=== PATIENT | female | born 1950 | race Caucasian/White ===

== ENCOUNTER → 2017-08-30 | Outpatient (CLI) | payer MEDICARE, OTHER ==
[~2017-08-30] MED LIST: ACYC400T4 PO
--- NOTE | 2017-08-30 16:04 | RAD ---
DATE: 08/30/2017 EXAM: MAMMO VANITA SCREENING BILATERAL HISTORY: Routine screening. COMPARISON: 2:15 01/08 and 02/15/2008. This study was interpreted with the benefit of Computerized Aided Detection (CAD). FINDINGS: The parenchymal pattern is stable. No mass or malignant appearing microcalcifications are seen. The axillae are unremarkable. Breast Density: SCATTERED The breast parenchyma shows scattered fibroglandular densities. Breast parenchyma level B. IMPRESSION: No mammographic features suspicious for malignancy are identified. BI-RADS CATEGORY: 1 NEGATIVE RECOMMENDED FOLLOW-UP: 12M 12 MONTH FOLLOW-UP PQRS compliance statement: Patient information was entered into a reminder system with a target due date 08/30/2018 for the next mammogram. Mammography is a sensitive method for finding small breast cancers, but it does not detect them all and is not a substitute for careful clinical examination. A negative mammogram does not negate a clinically suspicious finding and should not result in delay in biopsying a clinically suspicious abnormality. "Our facility is accredited by the [employer] Mammography [employer]."
== END | disposition home or self-care (01) ==
LOC: MAMMO 13:57
PROVIDERS: ATTEND Nurse Practitioner Family
DX: Z12.31 Encounter for screening mammogram for malignant neoplasm of breast (principal)
CPT/HCPCS: 77063; G0202; 77067

== ENCOUNTER → 2017-10-25 | Outpatient (CLI) | payer MEDICARE, OTHER ==
--- NOTE | 2017-10-25 13:07 | RAD ---
EXAM: Dual energy x-ray absorptiometry (DEXA). HISTORY: Post menopausal screening. TECHNIQUE: Dual energy x-ray absorptiometry of the lumbar spine and right hip was performed. Calculation of bone mineral density based on standard deviations above or below the expected young adult normal value (T-score) was completed. FINDINGS: The average bone mineral density associated with L1-L4 is 1.148 g/cm^2, corresponding with a T-score of -0.4. The lowest measured T score is -1.7 at L2. The average total bone mineral density associated with the right hip is 0.872 g/cm^2, corresponding with a T-score of -1.1. No comparison examinations are available. IMPRESSION: 1. Osteopenia. Fracture risk is increased. Note: Definitions established by the World Health Organization: 1. Normal: T-score is -1.0 or above the expected mean for a young adult. 2. Osteopenia: T-score is between -1.0 and -2.5. 3. Osteoporosis: T-score is -2.5 or below.
== END | disposition home or self-care (01) ==
LOC: DXRAD 12:27
PROVIDERS: ATTEND Nurse Practitioner Family
DX: M85.88 Other specified disorders of bone density and structure, other site (principal); M81.0 Age-related osteoporosis without current pathological fracture; Z78.0 Asymptomatic menopausal state
CPT/HCPCS: 77080

== ENCOUNTER → 2019-04-10 | Outpatient (CLI) | payer MEDICARE, OTHER ==
--- NOTE | 2019-04-11 11:32 | RAD ---
DATE: April 10, 2019 EXAM: MAMMO VANITA SCREENING BILATERAL HISTORY: Screening study. COMPARISON: 2017 This study was interpreted with the benefit of Computerized Aided Detection (CAD). 2-D digital mammographic views of both breasts were performed in the CC and MLO projections. 3-D digital tomosynthesis images of both breasts were performed in the CC and MLO projections and reviewed on a computer workstation. FINDINGS: Breast Density: SCATTERED The breast parenchyma shows scattered fibroglandular densities. Breast parenchyma level B.. There are no dominant suspicious masses, suspicious microcalcifications or evidence of architectural distortion. IMPRESSION: No mammographic indicators for malignancy. BI-RADS CATEGORY: 1 NEGATIVE RECOMMENDED FOLLOW-UP: 12M 12 MONTH FOLLOW-UP PQRS compliance statement: Patient information was entered into a reminder system with a target due date April 11, 2020 for the next mammogram. Mammography is a sensitive method for finding small breast cancers, but it does not detect them all and is not a substitute for careful clinical examination. A negative mammogram does not negate a clinically suspicious finding and should not result in delay in biopsying a clinically suspicious abnormality. "Our facility is accredited by the [employer] Mammography [employer]." The patient's breast density may affect the ability of mammography to detect breast cancer. There are 4 categories of breast density, A, B, C and D. Breast density A means that most of the breast tissue is replaced with adipose tissue and therefore is not dense. Breast density B means that the breast tissue is mildly dense and scattered. Breast density C means that the breast tissue is heterogeneously dense. Breast density D means that the breast tissue is very dense. Breast densities especially C and D may decrease the sensitivity of mammography to detect breast cancer. Therefore, the patient may benefit from 3-D breast mammography (3D breast tomography) as a part of their screening mammogram. Insurance may or may not pay for this additional imaging. The patient's breast density based on today's mammogram is category B.
== END | disposition home or self-care (01) ==
LOC: MAMMO 14:06
PROVIDERS: ATTEND Physician Assistant Medical
DX: Z12.31 Encounter for screening mammogram for malignant neoplasm of breast (principal)
CPT/HCPCS: 77063; 77067

== ENCOUNTER → 2020-06-06 | Outpatient (CLI) | payer MEDICARE, OTHER ==
--- NOTE | 2020-06-06 17:06 | RAD ---
BILATERAL SCREENING MAMMOGRAM, 3-D History: Routine screening. Comparison: 04/10/2019, 06/30/2017, 10/27/2010. Technique: MLO and CC digital tomosynthesis (3D) images obtained. Radiologist reviewed these images on dedicated workstation. Findings: Breast Tissue Density C : The breasts are heterogeneously dense, which may obscure small masses. There are no dominant masses, suspicious microcalcifications, or architectural distortion. IMPRESSION: No mammographic evidence of malignancy. Recommend routine screening. BI-RADS category 1: Negative. The images were reviewed with computer-aided detection. Patient information is entered into reminder system with a target due date for the next screening mammogram. Mammography is the most sensitive method for finding small breast cancers, but it does not detect them all and is not a substitute for careful clinical examination. A negative mammogram does not negate a clinically suspicious finding and should not result in delay in biopsying a clinically suspicious abnormality. "Our facility is accredited by the [employer] Mammography [employer]." Electronically signed by: Jabari Dean MD (06/06/2020 5:04 PM) [facility]
== END | disposition home or self-care (01) ==
LOC: MAMMO 13:37
PROVIDERS: ATTEND Physician Assistant Medical
DX: Z12.31 Encounter for screening mammogram for malignant neoplasm of breast (principal)
CPT/HCPCS: 77063; 77067

== ENCOUNTER → 2020-06-27 | Outpatient (CLI) | payer MEDICARE, OTHER ==
--- NOTE | 2020-06-27 12:22 | RAD ---
PA and lateral chest x-ray compared to similar exam dated 02/09/2014 for preop, shoulder surgery. FINDINGS: The lungs are clear. The cardiac mediastinum is grossly unremarkable. No significant soft tissue or osseous abnormalities are seen. IMPRESSION: 1. No acute cardiopulmonary abnormality. Electronically signed by: Herman Lilly MD (06/27/2020 12:19 PM) [id number]
== END ==
LOC: DXRAD 11:53
PROVIDERS: ATTEND Physician Assistant Medical
DX: Z01.818 Encounter for other preprocedural examination (principal)
CPT/HCPCS: 71046

== ENCOUNTER → 2021-07-20 | Outpatient (CLI) | payer MEDICARE, OTHER ==
--- NOTE | 2021-07-20 15:22 | RAD ---
Bilateral digital screening 2-D and 3-D (tomosynthesis) mammogram: Reason for examination: Routine screening. Comparison is made to previous mammograms from the 06/06/2020 and 04/10/2019. Bilateral mammograms in CC and oblique projections were obtained with 2-D imaging and 3-D tomosynthes is imaging and reviewed on the workstation. Interpretation was made with the benefit of CAD. Findings: Breast density: Category C. The breasts are heterogeneously dense, which may obscure small masses. There are no suspicious masses, malignant appearing calcifications or architectural distortion. There are rounded calcifications retroareolar region which it appeared of increased since previous mammogr ams. Impression: Calcifications in the left retroareolar region further evaluation with a diagnostic left mammogram is recommended. ASSESSMENT: BI-RADS 0. Incomplete. Recommendations: Diagnostic left mammogram. The patient will be contacted with results and scheduled for additional imaging. This patient's infor mation has been entered into a reminder system for the patient to be notified with the results of her examination and a target date for the next mammogram. Your patient's mammogram demonstrates that she has dense breast tissue (breast density category C or D), which could hide abnormalities, and if she has other risk factors for breast cancer that have bee n identified, she might benefit from supplemental screening tests that may be suggested by you as her ordering physician. Dense breast tissue, in and of itself, is a relatively common condition. Therefo re, this information is not provided to cause undue concern, but rather to raise your awareness and t o promote discussion with your patient regarding the presence of other risk factors, in addition to d ense breast tissue. Electronically signed by: Taya Baldwin MD (07/20/2021 3:19 PM) [id number]
== END ==
LOC: MAMMO 14:32
PROVIDERS: ATTEND Physician Assistant Medical
DX: Z12.31 Encounter for screening mammogram for malignant neoplasm of breast (principal)
CPT/HCPCS: 77063; 77067

== ENCOUNTER → 2021-07-31 | Outpatient (CLI) | payer MEDICARE, OTHER ==
--- NOTE | 2021-07-31 15:19 | RAD ---
EXAM: Left breast diagnostic mammogram. HISTORY: 70-year-old female presents for evaluation of left breast microcalcifications demonstrated o n a screening mammogram dated 07/20/2021. TECHNIQUE: Full-field digital and spot magnification views of the left breast are obtained. COMPARISON: 07/20/2021, 06/06/2020, and 04/10/2019 BREAST PARENCHYMAL DENSITY: Level C - Heterogeneously dense. FINDINGS: There are loosely clustered microcalcifications within the 6:00 anterior right breast. The largest of these calcifications are coarse and heterogeneous. There is no associated mass or architec tural distortion. IMPRESSION: 1. Indeterminant loosely clustered microcalcifications within the 6:00 anterior right breast. Stereot actic guided biopsy is recommended for definitive diagnosis. 2. BI-RADS Category 4: Suspicious abnormality. Stereotactic guided biopsy is recommended. These findings and recommendations were discussed with the patient and communicated to [place], the nurse for the referring physician internal medicine physician assistant, at 1550 hours on 07/31/2021. If your mammogram demonstrates that you have dense breast tissue, which could hide abnormalities, and if you have other risk factors for breast cancer that have been identified, you might benefit from s upplemental screening tests that may be suggested by your ordering physician. Dense breast tissue, i n and of itself, is a relatively common condition. This information is not provided to cause undue c oncern, but rather to raise your awareness and to promote discussion with your physician regarding th e presence of other risk factors, in addition to dense breast tissue. A report of your mammography re sults will be sent to you and your physician. You should contact your physician if you have any ques tions or concerns regarding this report. Mammography is a sensitive method for finding small breast cancers, but it does not detect them all a nd is not a substitute for careful clinical examination. A negative mammogram does not negate a clin ically suspicious finding and should not result in delay in biopsying a clinically suspicious abnorma lity. PQRS compliance statement - Patient information was entered into a reminder system with a target due date for the next mammogram. "Our facility is accredited by the [employer] Mammography Program." Electronically signed by: Olga Lidia Bowman MD (07/31/2021 3:17 PM) [id number]
== END ==
LOC: MAMMO 14:32
PROVIDERS: ATTEND Physician Assistant Medical
DX: R92.0 Mammographic microcalcification found on diagnostic imaging of breast (principal); R92.2 Inconclusive mammogram
CPT/HCPCS: 77065

== ENCOUNTER 2021-12-24 02:03 | Emergency (ER) | payer MEDICARE, OTHER ==
[~2021-12-24] VITALS: Ht 157.5 cm; Wt 56.3 kg
--- NOTE | 2021-12-24 02:08 | PHYS DOC ---
Past History Past Medical History: Diabetes, Hypertension Past Surgical History: Hysterectomy Past Surgical History Breast biopsy, right shoulder replacement General Adult HPI: HPI: '''..I ve been fighting this cold symptoms the past 2 weeks.. I went to bed abou t 9.. but I got up about a hour ago.. to go to bathroom.. and I just did not feel right... maybe a little weak in my Rt. arm ..and leg.. I felt like my speech was may be off... I think I am back to normal now..." Patient is a 71 year old female who presents with above hx and complaints of right arm with right,leg weakness. Patient went to bed approximately 2100 hrs. an approximately 1 AM. Got up to go the bathroom. Was able to ambulate to the bathroom and back. Patient complained to her that she is feeling" off" and may be a little weak particularly on right side. Eventually decided come to the emergency room for evaluation. Patient has past medical history of diabetes and currently on Metformin for the past year.. Some history of slightly elevated blood pressures. Has had previous lumpectomy which was benign. Has had surgery history of hysterectomy and right shoulder replacement.. Patient has been taking Mucinex for her cold symptoms past 2 weeks. Patient normally follows with [facility] for health maintenance care. Patient does not check her glucose levels. Patient has not had previous episodes of TIAs or CVAs. Patient has completed COVID vaccination and flu vaccination. No recent travel. No history of trauma. No specific ill contacts. Pt. initial glucose level is 123. GSC 15. NIHSS -0 to 1? articulation. at bedside states she is currently back to her baseline. No current deficits appreciated by him. Review of Systems: Review of Systems: Constitutional: Denies fever or chills Eyes: Denies change in visual acuity HENT: Denies nasal congestion or sore throat Respiratory: Denies cough or shortness of breath Cardiovascular: Denies chest pain or edema GI: Denies abdominal pain, nausea, vomiting, bloody stools or diarrhea : Denies dysuria Musculoskeletal: Denies back pain or joint pain Integument: Denies rash Neurologic: Complains of transient weakness right side arm and leg-symptoms have resolved by time arrival to the emergency department Endocrine: Denies polyuria or polydipsia Lymphatic: Denies swollen glands Psychiatric: Denies depression or anxiety Family History: Family History: Mother and father both had diabetes in their 70s. Current Medications: Current Meds: See nursing for home meds Allergies: Allergies: Allergies Coded Allergies Type Severity Reaction Last Updated Verified No Known Drug Allergies 02/13/14 No Physical Exam: PE: Constitutional: Well developed, well nourished, no acute distress, non-toxic appearance. [] HENT: Normocephalic, atraumatic, bilateral external ears normal, oropharynx moist, no oral exudates, nose normal. [] Eyes: PERRLA, EOMI, conjunctiva normal, no discharge. No field deficits Neck: Normal range of motion, no tenderness, supple, no stridor. No bruits Cardiovascular:Heart rate regular rhythm, no murmur [] Lungs & Thorax: Bilateral breath sounds equal apex with scattered wheezes and basilar crackles. Some rhonchi bilaterally on auscultation but cleared with coughing. Abdomen: Bowel sounds normal, soft, no tenderness, no masses, no pulsatile masses. Old surgery scars. Skin: Warm, dry, no erythema, no rash. [] Back: No tenderness, no CVA tenderness. [] Extremities: No tenderness, no cyanosis, no clubbing, ROM intact, no edema. No cording. Right shoulder scar Neurologic: Alert and oriented X 3, moves all extremities on request, does have distal sensory function, no focal deficits noted. [] DTRs +2 patella and brachial.. [place] Coma Score 15 NIH=0/1 Psychologic: Affect anxious, judgement normal, mood normal. [] EKG: EKG: My interpretation EKG shows a sinus rhythm at 76 bpm no findings acute STEMI with contralateral changes. Normal EKG time of EKG is 213 hours [] Radiology/Procedures: Radiology/Procedures: [address] [address] IMAGING REPORT Signed PATIENT: ERICKSON ORTA ACCOUNT: [id number] : 1950 LOCATION: ER AGE: 71 SEX: F EXAM STATUS: PRE ER ORD. PHYSICIAN: CRISTO GRESHAM MD REASON: dyspnea PROCEDURE: PORTABLE CHEST 1V EXAM: AP View of the chest DATE: 12/24/2021 2:16 AM INDICATION: Reason: dyspnea. Focal neurologic change. COMPARISON: 06/27/2020 FINDINGS: The heart is not enlarged. Mediastinal and hilar contours are normal. No focal parenchymal airspace opacity. No pleural effusion or pneumothorax. Right shoulder arthroplasty partially profiled. Left shoulder joint degenerative changes. IMPRESSION: 1. No radiographic evidence for acute cardiopulmonary process. Electronically signed by: Babar Newell MD (12/24/2021 2:35 AM) RAY DICTATED AND SIGNED BY: BABAR NEWELL MD DATE: 12/24/21234 CC: CRISTO GRESHAM MD; VIVI JIMENES ~ []REASON: Weakness - legs, DIFFICULTY SPEAKING PROCEDURE: CT CODE STROKE HEAD WO EXAM: CT Head without IV contrast CLINICAL HISTORY: Reason: Weakness - legs COMPARISON: None. TECHNIQUE: Routine CT of the head without contrast. PQRS compliance statement - One or more of the following individualized dose reduction techniques were utilized for this study: 1. Automated exposure control 2. Adjustment of the mA and/or kV according to patient size 3. Use of iterative reconstruction technique FINDINGS: There is no evidence of hemorrhage, mass or extra-axial fluid collection. Manzo-white differentiation is maintained with no evidence of edema. There is no mass effect or shift of the intracranial structures. The ventricles, basilar cisterns and cortical sulci are normal in size and configuration for the patients stated age. The cerebellum and brainstem are unremarkable. The calvarium demonstrates no evidence of fracture or focal lesion. There is normal aeration of the visualized paranasal sinuses and mastoid air cells. The visualized portions of the orbits are normal. IMPRESSION: No evidence for acute intracranial process. Findings discussed with CRISTO GRESHAM MD at 12/24/2021 2:33 AM. FOR INTERNAL CODING PURPOSES RESULT CODE: (C) Electronically signed by: Babar Newell MD (12/24/2021 2:36 AM) RAY DICTATED AND SIGNED BY: BABAR NEWELL MD DATE: 12/24/21230 CC: CRISTO GRESHAM MD; VIVI JIMENES Heart Score: C/O Chest Pain: N/A Risk Factors: Risk Factors: DM, Current or recent (<one month) smoker, HTN, HLP, family history of CAD, obesity. Risk Scores: Score 0 - 3: 2.5% MACE over next 6 weeks - Discharge Home Score 4 - 6: 20.3% MACE over next 6 weeks - Admit for Clinical Observation Score 7 - 10: 72.7% MACE over next 6 weeks - Early Invasive Strategies Course & Med Decision Making: Course & Med Decision Making Pertinent Labs and Imaging studies reviewed. (See chart for details) CT angio deferred this time because of Metformin use. Discussed presentation, testing and treatment plan with -we will start on a daily aspirin. Patient elects to follow-up in his office. [phone]. Patient to call his office in the morning for follow-up. Patient return if any concerns. Impression; 1. Neuro symptoms 2. Possible TIA 3. Viral syndrome-respiratory 4. Negative rapid influenza A and influenza B, and rapid COVID [] Dragon Disclaimer: Dragon Disclaimer: This electronic medical record was generated, in whole or in part, using a voice recognition dictation system. Departure Departure: Referrals: VIVI JIMENES (PCP) Dragon Disclaimer This chart was dictated in whole or in part using Voice Recognition software in a busy, high-work load, and often noisy Emergency Department environment. It may contain unintended and wholly unrecognized errors or omissions. Dragon Disclaimer This chart was dictated in whole or in part using Voice Recognition software in a busy, high-work load, and often noisy Emergency Department environment. It may contain unintended and wholly unrecognized errors or omissions. Dragon Disclaimer This chart was dictated in whole or in part using Voice Recognition software in a busy, high-work load, and often noisy Emergency Department environment. It may contain unintended and wholly unrecognized errors or omissions. CRISTO GRESHAM MD Dec 24, 2021 02:08
[2021-12-24] MEDS ORDERED: IV RINGERS SOLUTION,LACTATED 1,000 ML IV SCH (02:15)
--- NOTE | 2021-12-24 02:38 | RAD ---
EXAM: CT Head without IV contrast CLINICAL HISTORY: Reason: Weakness - legs COMPARISON: None. TECHNIQUE: Routine CT of the head without contrast. PQRS compliance statement - One or more of the following individualized dose reduction techniques wer e utilized for this study: 1. Automated exposure control 2. Adjustment of the mA and/or kV according to patient size 3. Use of iterative reconstruction technique FINDINGS: There is no evidence of hemorrhage, mass or extra-axial fluid collection. Manzo-white differentiation is maintained with no evidence of edema. There is no mass effect or shift of the intracranial structures. The ventricles, basilar cisterns and cortical sulci are normal in size and configuration for the josh ents stated age. The cerebellum and brainstem are unremarkable. The calvarium demonstrates no evidence of fracture or focal lesion. There is normal aeration of the visualized paranasal sinuses and mastoid air cells. The visualized portions of the orbits are normal. IMPRESSION: No evidence for acute intracranial process. Findings discussed with CRISTO GRESHAM MD at 12/24/2021 2:33 AM. FOR INTERNAL CODING PURPOSES RESULT CODE: (C) Electronically signed by: Babar Godoy MD (12/24/2021 2:36 AM) [facility]
--- NOTE | 2021-12-24 02:38 | RAD ---
EXAM: AP View of the chest DATE: 12/24/2021 2:16 AM INDICATION: Reason: dyspnea. Focal neurologic change. COMPARISON: 06/27/2020 FINDINGS: The heart is not enlarged. Mediastinal and hilar contours are normal. No focal parenchymal airspace opacity. No pleural effusion or pneumothorax. Right shoulder arthroplasty partially profiled. Left shoulder joint degenerative changes. IMPRESSION: 1. No radiographic evidence for acute cardiopulmonary process. Electronically signed by: Babar Godoy MD (12/24/2021 2:35 AM) RAY
[2021-12-24 02:58] LABS: BASO # 0.1 x10^3/uL (0.0-0.2); BASO % 1 % (0-3); EOS # 0.3 x10^3/uL (0.0-0.7); EOS % 4 % (0-3); HEMATOCRIT 42.5 % (36.0-47.0); HEMOGLOBIN 14.2 g/dL (12.0-15.5); LYMPH # 3.8 x10^3/uL (1.0-4.8); LYMPH % 52 % (24-48); MEAN CORPUSCULAR HEMOGLOBIN 30 pg (25-35); MEAN CORPUSCULAR HGB CONC 34 g/dL (31-37); MEAN CORPUSCULAR VOLUME 90 fL (79-100); MONO # 0.7 x10^3/uL (0.0-1.1); MONO % 9 % (0-9); NEUT # 2.5 x10^3uL (1.8-7.7); NEUT % 34 % (31-73); PLATELET COUNT 231 x10^3/uL (140-400); RED BLOOD COUNT 4.75 x10^6/uL (3.50-5.40); RED CELL DISTRIBUTION WIDTH 12.8 % (11.5-14.5); WHITE BLOOD COUNT 7.3 x10^3/uL (4.0-11.0)
[2021-12-24] MEDS ORDERED: ASPIRIN CHEWABLE 81 MG TABLET. PO ONE (03:15)
[2021-12-24 03:43] LABS: CALCIUM 8.9 mg/dL (8.5-10.1); CREATININE 0.8 mg/dL (0.6-1.0); GFR 70.5; POTASSIUM 4.2 mmol/L (3.5-5.1)
[2021-12-24 03:48] LABS: AMPHETAMINE/METHAMPHETAMINE NEG (NEG); BARBITURATES NEG (NEG); BENZODIAZEPINES NEG (NEG); CANNABINOIDS NEG (NEG); COCAINE NEG (NEG); METHADONE NEG (NEG); OPIATES NEG (NEG); PHENCYCLIDINE NEG (NEG)
[2021-12-24 03:54] LABS: ALBUMIN 3.6 g/dL (3.4-5.0); C REACTIVE PROTEIN 1.4 mg/L (0-3.3); DIRECT BILIRUBIN 0.1 mg/dL (0.0-0.2); MAGNESIUM 1.9 mg/dL (1.8-2.4); TOTAL BILIRUBIN 0.3 mg/dL (0.2-1.0); TOTAL PROTEIN 6.3 g/dL (6.4-8.2)
[2021-12-24 03:57] LABS: INFLUENZA A PATIENT NEGATIVE (NEGATIVE); INFLUENZA B PATIENT NEGATIVE (NEGATIVE)
[2021-12-24 04:31] LABS: BACTERIA,URINE 0 /HPF (0-FEW); CLARITY,URINE CLEAR; COLOR,URINE YELLOW; GLUCOSE,URINE NEG (NEG); NITRITE,URINE NEG (NEG); RBC,URINE 0 /HPF (0-2); SQUAMOUS EPITHELIAL CELL,UR FEW /LPF; UROBILINOGEN,URINE 0.2 mg/dL (0.2 mg/dL)
[2021-12-24 04:35] VITALS: BP 143/79
--- NOTE | 2021-12-24 06:34 | EKG ---
[address] [address] Test Date: 2021-12-24 Test Time: 02:13:59 Pat Name: ERICKSON ORTA Department: Room: Gender: F Investment Accounting Clerk: : 1950 Requested By: CRISTO GRESHAM Order Number: [id number] Reading MD: Ruben Todd Measurements Intervals [place] Rate: 76 P: 49 MA: 156 QRS: 21 QRSD: 86 T: 46 QT: 382 QTc: 429 Interpretive Statements SINUS RHYTHM Electronically Signed On 12-25-2021 13:21:28 CDT by Ruben Todd
== END 2021-12-24 04:35 | disposition home or self-care (01) ==
LOC: ER 02:03
DX: B34.9 Viral infection, unspecified (principal); R53.1 Weakness; E11.9 Type 2 diabetes mellitus without complications; I10 Essential (primary) hypertension; Z20.822 Contact with and (suspected) exposure to COVID-19
CPT/HCPCS: 36415; 70450; 71045; 80048; 80076; 80307; 81001; 82550; 82947; 83690; 83735; 83880; 84443; 84484; 85025; 85379; 85610; 85730; 86140; 87086; 87428; 93005; 96360; 96361; 99285; J7120

== ENCOUNTER → 2021-12-28 | Outpatient (CLI) | payer MEDICARE, OTHER ==
[2021-12-24 04:35] VITALS: BP 143/79
[~2021-12-28] MED LIST changes: +IOHEXOL 350 MG/ML 100 ML VIAL. IV ONE
--- NOTE | 2021-12-28 13:30 | RAD ---
CTA head and neck with contrast dated 12/28/2021 Comparison: Noncontrast head CT dated 12/24/2021 CLINICAL INDICATION: TIA Technique: CTA of the head and neck was acquired following the intravenous administration of 75 cc Omnipaque 350 . Thin cut coronal and sagittal MIPS reconstructions and 3-D rotational reconstruction. One or more of the following individualized dose reduction techniques were utilized for this examinat ion: 1. Automated exposure control 2. Adjustment of the mA and/or kV according to patient size 3. Use of iterative reconstruction technique. Carotid Stenosis calculations for CT, MR, and conventional angiography are based upon measurements of the distal ICA diameter in accordance with the NASCET methodology. Stenosis calculations for carotid ultrasound studies are derived from validated velocity criteria which are known to correlate with th e NASCET methodology. FINDINGS: Contrast bolus is adequate. Aortic arch is normal in caliber. Bilateral subclavian arteries are paten t. There is mild calcific plaque at the left vertebral artery origin without significant stenosis. Th e bilateral vertebral arteries are otherwise patent to the skull base. No intimal flap or focal steno sis. The intradural vertebral arteries are patent. Basilar artery is well formed. Bilateral PARTS CONTROL CLERK are p atent. Bilateral common carotid arteries are patent. Minimal atherosclerotic plaque at the carotid bifurcati ons. No focal stenosis. There is mild calcific plaquing at the cavernous internal carotid arteries wi thout significant stenosis. JUAN MANUEL and MCA branches are patent. No large vessel occlusion or focal aneur ysm. Patent anterior communicating artery. Postcontrast imaging of the brain shows no abnormal enhancement. Dural venous sinuses are grossly pat ent. No significant soft tissue abnormality. There are are mildly enlarged bilateral cervical chain l ymph nodes, nonspecific. Limited images of the lung apices are clear. There is mild to moderate multi level cervical spondylosis. Mild mucosal thickening of the ethmoid air cells and left maxillary sinus . Mastoid air cells are clear. IMPRESSION: 1. Mild scattered arthritic plaquing with no evidence of hemodynamically significant stenosis or aneu rysm. No proximal branch vessel occlusion. 2. Borderline enlarged bilateral cervical chain lymph nodes, nonspecific. Electronically signed by: Adam Tinsley MD (12/28/2021 1:27 PM) [facility]
== END ==
LOC: CT 10:09
PROVIDERS: ATTEND Psychiatry & Neurology Neurology
DX: G45.9 Transient cerebral ischemic attack, unspecified (principal); M47.812 Spondylosis without myelopathy or radiculopathy, cervical region
CPT/HCPCS: 70496; 70498; Q9967

== ENCOUNTER → 2022-01-01 | Outpatient (CLI) | payer MEDICARE, OTHER ==
[2021-12-24 04:35] VITALS: BP 143/79
[~2022-01-01] MED LIST changes: -IOHEXOL 350 MG/ML 100 ML VIAL. IV ONE
[2022-01-01 15:46] LABS: CHOLESTEROL/HDL RATIO 4.5
== END ==
LOC: LAB 09:02
PROVIDERS: ATTEND Psychiatry & Neurology Neurology
DX: G45.9 Transient cerebral ischemic attack, unspecified (principal)
CPT/HCPCS: 80061